=== PATIENT | female | born 1945 | race Caucasian/White ===

== ENCOUNTER 2022-09-02 18:51 | Outpatient (NON) | payer MEDICARE, SELFPAY ==
[2022-09-02 19:02] LABS: Hemoglobin 12.7 g/dL (11.7-13.8); Mean Corpuscular Hemoglobin 29.7 pg (27.0-31.0); Mean Platelet Volume 10.2 fl (9.2-11.8); Platelet Count Result 344 K/mm3 (150-420); Red Blood Count 4.27 M/mm3 (4.20-5.40); Red Cell Distribution Width 12.9 % (11.6-14.4); White Blood Count 15.6 K/mm3 (4.8-10.8)
[2022-09-02 19:21] LABS: Alanine Aminotransferase 24 U/L (14-59); Albumin Level 3.4 g/dL (3.4-5.0); Alkaline Phosphatase 115 U/L (46-116); Anion Gap 4 mmol/L (8-16); Aspartate Amino Transferase 24 U/L (15-37); Bilirubin,Total 0.2 mg/dL (0.00-1.00); Blood Urea Nitrogen 12 mg/dL (7-18); Calcium 9.7 mg/dL (8.5-10.1); Carbon Dioxide 37 mmol/L (21-32); Chloride 96 mmol/L (98-108); Estimated Glomerular Filt Rate > 60; Glucose 102 mg/dL (70-99); Osmolality Calculated 283 mOsm/kg (285-295); Potassium 4.5 mmol/L (3.5-5.1); Sodium 137 mmol/L (136-145); Total Protein 8.3 g/dL (6.4-8.2)
[2022-09-03 12:41] LABS: Band Neutrophils Percent 0 % (0-6); Basophils Absolute Manual 0.15 K/mm3 (0-0.1); Basophils Percent Manual 1 % (0-1); Eosinophils Absolute Manual 0.62 K/mm3 (0.02-0.5); Eosinophils Percent Manual 4 % (1-6); Lymphocytes Absolute Manual 1.71 K/mm3 (1.1-4.5); Lymphocytes Percent Manual 11 % (18-44); Monocytes Absolute Manual 0.93 K/mm3 (0.1-0.90); Monocytes Percent Manual 6 % (3-9); Neutrophils Absolute Manual 12.16 K/mm3 (1.7-7.2); Neutrophils Percent Manual 78 % (46-73); Total Cells Counted 100
[2022-09-03 12:42] LABS: Platelet Estimate Adequate (Adequate)
== END 2022-09-02 18:52 | disposition home or self-care (01) ==
LOC: CHSLAB 18:53
DX: R11.0 Nausea (principal)
CPT/HCPCS: 36415; 80053; 85025; 85027

== ENCOUNTER 2022-09-26 19:07 | Outpatient (NON) | payer MEDICARE, SELFPAY ==
[2022-09-26 20:06] LABS: Hematocrit 36.5 % (35.0-42.0); Hemoglobin 11.5 g/dL (11.7-13.8); Mean Corpuscular HGB Conc 31.5 g/dL (32.0-36.0); Mean Corpuscular Hemoglobin 30.3 pg (27.0-31.0); Mean Corpuscular Volume 96.1 fL (78.0-102.0); Mean Platelet Volume 11.7 fl (9.2-11.8); Platelet Count Result 274 K/mm3 (150-420); White Blood Count 9.8 K/mm3 (4.8-10.8)
[2022-09-26 20:24] LABS: Alanine Aminotransferase 23 U/L (14-59); Albumin Level 3.5 g/dL (3.4-5.0); Alkaline Phosphatase 104 U/L (46-116); Anion Gap 5 mmol/L (8-16); Aspartate Amino Transferase 16 U/L (15-37); Bilirubin,Total 0.2 mg/dL (0.00-1.00); Blood Urea Nitrogen 9 mg/dL (7-18); Calcium 8.9 mg/dL (8.5-10.1); Carbon Dioxide 32 mmol/L (21-32); Chloride 106 mmol/L (98-108); Estimated Glomerular Filt Rate > 60; Free T4 Free Thyroxine 1.24 ng/dL (0.76-1.46); Glucose 91 mg/dL (70-99); Osmolality Calculated 294 mOsm/kg (285-295); Potassium 3.7 mmol/L (3.5-5.1); Sodium 143 mmol/L (136-145); Thyroid Stimulating Hormone 1.62 uIU/mL (0.36-3.74); Total Protein 7.7 g/dL (6.4-8.2)
[2022-09-26 22:17] LABS: Band Neutrophils Percent 0 % (0-6); Lymphocytes Absolute Manual 1.07 K/mm3 (1.1-4.5); Lymphocytes Percent Manual 11 % (18-44); Monocytes Absolute Manual 0.58 K/mm3 (0.1-0.90); Monocytes Percent Manual 6 % (3-9); Neutrophils Absolute Manual 6.86 K/mm3 (1.7-7.2); Neutrophils Percent Manual 70 % (46-73)
[2022-09-26 22:18] LABS: Basophils Absolute Manual 0.09 K/mm3 (0-0.1); Basophils Percent Manual 1 % (0-1); Eosinophils Absolute Manual 1.17 K/mm3 (0.02-0.5); Eosinophils Percent Manual 12 % (1-6); Platelet Estimate Adequate (Adequate)
== END 2022-09-26 19:08 | disposition home or self-care (01) ==
LOC: CHSLAB 19:20
DX: R11.0 Nausea (principal); E03.9 Hypothyroidism, unspecified
CPT/HCPCS: 36415; 80053; 84439; 84443; 85025

== ENCOUNTER 2022-10-14 18:19 | Outpatient (NON) | payer MEDICARE, SELFPAY ==
[2022-10-21 18:09] LABS: Soluble Transferrin Receptor 1.09 mg/L (0.76-1.76)
== END 2022-10-14 18:20 | disposition home or self-care (01) ==
LOC: CHSLAB 18:23
DX: E61.1 Iron deficiency (principal)
CPT/HCPCS: 36415; 84238

== ENCOUNTER 2023-02-26 18:21 | Outpatient (NON) | payer MEDICARE, SELFPAY ==
[2023-02-26 18:52] LABS: Basophils Absolute Auto 0.13 K/mm3 (0.00-0.10); Basophils Percent Auto 1.3 % (0.0-1.0); Eosinophils Absolute Auto 0.47 K/mm3 (0.02-0.50); Eosinophils Percent Auto 4.7 % (1.0-6.0); Hematocrit 40.6 % (35.0-42.0); Hemoglobin 13.3 g/dL (11.7-13.8); Immature Granulocyte Absolute 0.04 K/mm3 (0.00-0.00); Immature Granulocyte Percent A 0.4 % (0.0-0.0); Lymphocytes Absolute Auto 1.92 K/mm3 (1.10-4.50); Lymphocytes Percent Auto 19.4 % (18.0-42.0); Mean Corpuscular HGB Conc 32.8 g/dL (32.0-36.0); Mean Corpuscular Hemoglobin 31.4 pg (27.0-31.0); Mean Platelet Volume 10.7 fl (9.2-11.8); Monocytes Absolute Auto 0.91 K/mm3 (0.10-0.90); Monocytes Percent Auto 9.2 % (2.0-11.0); Neutrophils Absolute Auto 6.5 K/mm3 (1.7-7.2); Platelet Count Result 286 K/mm3 (150-420); Red Blood Count 4.23 M/mm3 (4.20-5.40); Red Cell Distribution Width 12.9 % (11.6-14.4); White Blood Count 9.9 K/mm3 (4.8-10.8)
[2023-02-26 18:59] LABS: Occult Blood Negative (Negative)
[2023-02-26 19:02] LABS: Alanine Aminotransferase 20 U/L (14-59); Albumin Level 3.6 g/dL (3.4-5.0); Alkaline Phosphatase 92 U/L (46-116); Amylase 79 U/L (25-115); Anion Gap 6 mmol/L (8-16); Aspartate Amino Transferase < 10 U/L (15-37); Bilirubin,Total 0.2 mg/dL (0.00-1.00); Blood Urea Nitrogen 17 mg/dL (7-18); Calcium 9.5 mg/dL (8.5-10.1); Carbon Dioxide 34 mmol/L (21-32); Chloride 100 mmol/L (98-108); Estimated Glomerular Filt Rate > 60; Glucose 118 mg/dL (70-99); Lipase 56 U/L (16-77); Osmolality Calculated 292 mOsm/kg (285-295); Potassium 4.6 mmol/L (3.5-5.1); Sodium 140 mmol/L (136-145); Total Protein 7.2 g/dL (6.4-8.2)
== END 2023-02-26 18:22 | disposition home or self-care (01) ==
LOC: CHSLAB 18:24
DX: R11.2 Nausea with vomiting, unspecified (principal); R19.5 Other fecal abnormalities; R10.11 Right upper quadrant pain
CPT/HCPCS: 36415; 80053; 82150; 82272; 83690; 85025